=== PATIENT | male | born 1980 | race Caucasian/White ===

== ENCOUNTER → 2021-09-28 | Day surgery (SDC) | payer BC ==
[~2021-09-28] MED LIST: Ketamine 200 MG/20 ML MDV ONE; Lactated Ringers 1,000 ML IV SCH; Propofol 200 MG/20 ML SDV ONE; fentaNYL 100 MCG/2 ML SDV ONE
== END ==
LOC: CC.SDS 08:44
PROVIDERS: ATTEND Family Medicine
DX: R19.7 Diarrhea, unspecified (principal); R10.12 Left upper quadrant pain; R19.4 Change in bowel habit; G89.29 Other chronic pain; F17.210 Nicotine dependence, cigarettes, uncomplicated; Z79.899 Other long term (current) drug therapy
CPT/HCPCS: J2704; J3010; J7120